=== PATIENT | female | born 1995 | race Caucasian/White ===

== ENCOUNTER → 2017-01-24 | Outpatient (CLI) | payer OTHER ==
--- NOTE | 2017-01-24 13:17 | DIAGNOSTIC IMAGING REPORT ---
RIGHT ANKLE 3 VIEWS CLINICAL HISTORY: Right ankle injury. FINDINGS: 3 views of the right ankle are obtained. No prior studies are available for comparison at the time of dictation. The skeletal structures are well mineralized. No fracture is seen. The ankle mortise is intact. An os trigonum is incidentally noted. Minimal spurring is seen along the dorsal aspect of the tarsal bones. There is a joint effusion. Mild soft tissue swelling is present around the ankle. IMPRESSION: Soft tissue swelling and joint effusion. No right ankle fracture is seen. Electronically signed by: Michelet Mitchell M.D. 01/24/2017 1:16 PM Dictated Date/Time: 01/24/2017 1:04 PM
== END | disposition home or self-care (01) ==
LOC: C.RDSM 12:12
PROVIDERS: ATTEND Family Medicine
DX: M25.571 Pain in right ankle and joints of right foot (principal); M79.89 Other specified soft tissue disorders